=== PATIENT | female | born 1960 | race African-American/Black ===

== ENCOUNTER 2019-01-27 19:56 | Emergency (ER) | payer SELFPAY ==
[2019-01-27] MEDS ORDERED: ONDANSETRON 4 MG/2 ML VIAL IVPUSH ONE (20:11)
[2019-01-27] MEDS ORDERED: FAMOTIDINE 20 MG/50 ML IVPB 20 MG/50 ML MG IVPB ONE (20:11)
[2019-01-27] MEDS ORDERED: SODIUM CHLORIDE 1,000 ML IV STA (20:11)
--- NOTE | 2019-01-27 20:11 | PDOC ---
History of Present Illness - General Stated Complaint: NAUSEA/VOMITING Time Seen by Provider: 01/27/19 19:58 History Source: Patient Exam Limitations: No Limitations - History of Present Illness Initial Comments: 01/27/19 20:12 58 year old female with PMH HTN BIBA to ED for lightheadedness associated with nausea/vomiting since eating dinner today. Pt reported she was eating noodles, got up to help her grandson use the restroom, bent down to the ground and felt lightheaded then vomited 3 times. Pt denied blood in vomit, diarrhea, fever, chest pain, shortness of breath, cough. Pt reported she felt lightheaded for about an hour, which resolved just [employer]. Pt stated she had umbilical abdominal pain after vomiting, which has since resolved. Pt reported medication compliance. Allergies: NKDA Surgical history: denied ETOH use: denied Nicotine use: denied Past History - Past Medical History Allergies/Adverse Reactions: Allergies Allergy/AdvReac Type Severity Reaction Status Date / Time No Known Allergies Allergy Verified 01/27/19 20:21 Home Medications: Ambulatory Orders Lisinopril/Hydrochlorothiazide [Lisinopril-Hctz 20-12.5 mg Tab] 1 each PO DAILY 01/27/19 Review of Systems - Review of Systems Able to Perform ROS?: Yes Comments:: 01/27/19 20:12 General: denied fever, chills, generalized weakness. HEENT: denied sore throat, rhinorrhea, ear pain. Heart: admitted to lightheadedness. denied chest pain, palpitations, syncope, diaphoresis. Respiratory: denied shortness of breath, cough, sputum production, hemoptysis. Abdomen: admitted to abdominal pain, nausea, vomiting. denied diarrhea, constipation, blood in stool. : denied dysuria, increased urinary frequency, hematuria, urinary incontinence , flank pain. Back: denied back pain. Musculoskeletal: denied joint pain, muscle pain, joint swelling. Neurological: denied headache, dizziness, numbness, tingling, weakness. Skin: denied rash, laceration, abrasion. *Physical Exam - Physical Exam Comments: 01/27/19 20:15 Constitutional: Well-nourished, Well-developed, appearing stated age. obese. HEENT: head is normocephalic, atraumatic. EOMI. PERRLA. Neck: supple. Full ROM. Heart: regular rhythm. no murmurs, rubs or gallops. Lungs: clear to auscultation bilaterally. no crackles, rhonchi or wheezing. no stridor. Abdomen: soft, nontender, protuberant. normal bowel sounds. no rebound, guarding , masses. Extremities: peripheral pulses intact. no lower extremity edema. Neurological: CN 2-12 grossly intact. moves all four extremities. Psych: awake, alert, oriented x3. follows commands. answers questions appropriately. ED Treatment Course - LABORATORY CBC & Chemistry Diagram: 01/27/19 20:30 01/27/19 20:30 Medical Decision Making - Medical Decision Making 01/27/19 20:15 58 year old female with above PMH presented to ED for lightheadedness associated with nausea/vomiting. Initial Vital Signs Temp Pulse Resp BP Pulse Ox 97.8 F 77 18 137/66 98 01/27/19 20:14 01/27/19 20:14 01/27/19 20:14 01/27/19 20:14 01/27/19 20:14 Afebrile. No tachycardia. No tachypnea. Mild hypertension. No hypoxia on room air. Labs ordered: CBC, CMP, mag, troponin Medications ordered: normal saline 1000 cc bolus once, pepcid, maalox, zofran 4 mg IV once Imaging ordered: none EKG performed at 2012: rate 77, regular rhythm, normal axis, normal intervals, no acute ST changes. 01/27/19 21:00 pts orthostatics were negative, but pt was symptomatic upon standing 126/69, 83 laying 135/88, 78 sitting 130/78, 69 standing CBC WBC 6.4 K/mm3 (4.0-10.0) 01/27/19 20:30 RBC 4.87 M/mm3 (3.60-5.2) 01/27/19 20:30 Hgb 12.9 GM/dL (10.7-15.3) 01/27/19 20:30 Hct 39.2 % (32.4-45.2) 01/27/19 20:30 MCV 80.5 fl (80-96) 01/27/19 20:30 MCH 26.4 pg (25.7-33.7) 01/27/19 20:30 MCHC 32.8 g/dl (32.0-36.0) 01/27/19 20:30 RDW 15.1 % (11.6-15.6) 01/27/19 20:30 Plt Count 301 K/MM3 (134-434) 01/27/19 20:30 MPV 7.6 fl (7.5-11.1) 01/27/19 20:30 Absolute Neuts (auto) 4.0 K/mm3 (1.5-8.0) 01/27/19 20:30 Neutrophils % 63.1 % (42.8-82.8) 01/27/19 20:30 Lymphocytes % 29.1 % (8-40) 01/27/19 20:30 Monocytes % 6.6 % (3.8-10.2) 01/27/19 20:30 Eosinophils % 0.8 % (0-4.5) 01/27/19 20:30 Basophils % 0.4 % (0-2.0) 01/27/19 20:30 Nucleated RBC % 0 % (0-0) 01/27/19 20:30 01/27/19 21:18 CMP Sodium 142 mmol/L (136-145) 01/27/19 20:30 Potassium 3.9 mmol/L (3.5-5.1) 01/27/19 20:30 Chloride 108 mmol/L (98-107) H 01/27/19 20:30 Carbon Dioxide 30 mmol/L (21-32) 01/27/19 20:30 Anion Gap 4 MMOL/L (8-16) L 01/27/19 20:30 BUN 16.5 mg/dL (7-18) 01/27/19 20:30 Creatinine 0.8 mg/dL (0.55-1.3) 01/27/19 20:30 Est GFR (CKD-EPI)AfAm 94.85 01/27/19 20:30 Est GFR (CKD-EPI)NonAf 81.84 01/27/19 20:30 Random Glucose 102 mg/dL (74-106) 01/27/19 20:30 Calcium 9.1 mg/dL (8.5-10.1) 01/27/19 20:30 Magnesium 2.4 mg/dL (1.8-2.4) 01/27/19 20:30 Total Bilirubin 0.3 mg/dL (0.2-1) 01/27/19 20:30 AST 13 U/L (15-37) L 01/27/19 20:30 ALT 19 U/L (13-61) 01/27/19 20:30 Alkaline Phosphatase 116 U/L (45-117) 01/27/19 20:30 Troponin I < 0.02 ng/ml (0.00-0.05) 01/27/19 20:30 Total Protein 7.8 g/dl (6.4-8.2) 01/27/19 20:30 Albumin 3.7 g/dl (3.4-5.0) 01/27/19 20:30 Lipase 116 U/L (73-393) 01/27/19 20:30 No electrolyte abnormalities. No MYNOR. No transaminitis. Troponin undetectable. Lipase wnl. 01/27/19 22:23 Pt informed of results. Pt reported no recurrence of lightheadedness/nausea/vomiting. Pt discharged. Discharge medications: none *DC/Admit/Observation/Transfer Diagnosis at time of Disposition: Lightheadedness - Discharge Dispostion Disposition: HOME Condition at time of disposition: Improved Decision to Admit order: No - Referrals Referrals: Britni Munoz MD [Primary Care Provider] - - Patient Instructions Printed Discharge Instructions: DI for Dehydration -- Adult Additional Instructions: You were seen today for lightheadedness. Your lab work was normal. Your EKG was normal. Follow up with your primary care doctor within 3 days. Your care is not complete until you follow up. Drink lots of water throughout the day to stay hydrated. Eat a bland diet for the next 24 hours - bread, rice, toast, applesauce - to give your stomach a rest. Return to the Emergency Department for lightheadedness like you may pass out, chest pain, shortness of breath, severe back pain, weakness, numbness or any other new, worsening or concerning symptoms. - Post Discharge Activity Forms/Work/School Notes: Back to Work
[2019-01-27 20:18] VITALS: BP 137/66; PULSE 77; TEMP 97.8; BMI 83.2
--- NOTE | 2019-01-27 20:32 | PDOC ---
Documentation entered by Akin Woody SCRIBE, acting as scribe for Radha Mendez DO. Radha Mendez DO: This documentation has been prepared by the Bong alvarez Daniel, SCRIBE, under my direction and personally reviewed by me in its entirety. I confirm that the documentation accurately reflects all work, treatment, procedures, and medical decision making performed by me. Attending Attestation - Resident Resident Name: Galina Wakefield - ED Attending Attestation I have performed the following: I have examined & evaluated the patient, The case was reviewed & discussed with the resident, I agree w/resident's findings & plan, Exceptions are as noted - HPI HPI: 01/27/19 20:38 The patient is a 58 year old female with a past medical history of HTN here today for evaluation of lightheadedness. The patient reports that she was eating dinner when she bent down to help her grandson when she began to feel lightheaded. She notes that the lightheadedness lasted for about 1 hour and notes 3 episodes of vomiting and abdominal pain due to the vomiting. Patient denies headache. Denies fever, chills. Denies chest pain, shortness of breath. Denies nausea, diarrhea. Allergies: NKA - Physicial Exam PE: 01/27/19 20:38 Constitutional: Awake, alert, oriented. No acute distress. Head: Normocephalic. Atraumatic Eyes: PERRL. EOMI. Conjunctivae are not pale. ENT: Mucous membranes are moist and intact. Posterior pharynx without exudates or erythema. Uvula midline. Neck: Supple. Full ROM. No lymphadenopathy. Cardiovascular: Regular rate. Regular rhythm. S1, S2 regular. Distal pulses are 2+ and symmetric. Pulmonary/Chest: No evidence of respiratory distress. Clear to auscultation bilaterally No wheezing, rales or rhonchi. Abdominal: Soft and non-distended. There is no tenderness. No rebound, guarding or rigidity. No organomegaly. No palpable masses. Good bowel sounds. Back: No CVA tenderness. Musculoskeletal: No edema. No cyanosis. No clubbing. Full range of motion in all extremities. Nocalf tenderness. Radial/pedal pulses are intact and 2+ bilaterally Skin: Skin is warm and dry. No petechiae. No purpura. Neurological: Alert and oriented to person, place, and time. Cranial nerves II -XII are grossly intact. Normal speech. Strength is grossly symmetric. No sensory deficits. Psychiatric: Good eye contact. Normal interaction, affect and behavior. - Medical Decision Making 01/27/19 20:29 I, Dr. Radha Mendez, DO, attest that this document has been prepared under my direction and personally reviewed by me in its entirety. I further attest, that it accurately reflects all work, treatment, procedures and medical decision -making performed by me. 01/27/19 20:29 a/p: 58yo female who has recently been dieting with an episode of lightheadedness and then nbnb n/v after bending down and then standing up quickly -pt takes lisinopril/hctz -states she drank a small coffee and a bottle of water today -pt denies cp/sob -states after n/v she had an episodes of diarrhea -pt states she also walked outside today in the heat to and from work - 3blocks each way -pt has been dieting since january 01-no carbs, lois also ate pasta. -will obtain orthostatics, labs, ekg, will give 1l nss -pt is nontoxic in appearance, currently denies all complaints. 01/27/19 20:58 pts orthostatics were negative, but pt was symptomatic upon standing 126/69, 83 laying 135/88, 78 sitting 130/78, 69 standing 01/27/19 21:19 labs reviewed pt states feeling better po challenge given 01/27/19 21:20 ivf hydration running once finished pt will be stable for dc to home Heart Score/ECG Review - ECG Intrepretation Comment:: 01/27/19 20:31 sinus at 77, nl axis, nl interval, lvh, no acute st/t wave findings
[2019-01-27 20:56] LABS: BASO % 0.4 % (0-2.0); EOS % 0.8 % (0-4.5); HEMATOCRIT 39.2 % (32.4-45.2); HEMOGLOBIN 12.9 GM/dL (10.7-15.3); LYMPH % 29.1 % (8-40); MCH 26.4 pg (25.7-33.7); MCHC 32.8 g/dl (32.0-36.0); MEAN CELL VOLUME 80.5 fl (80-96); MEAN PLT VOLUME 7.6 fl (7.5-11.1); MONO % 6.6 % (3.8-10.2); NEUT % 63.1 % (42.8-82.8); PLATELET COUNT 301 K/MM3 (134-434); RBC 4.87 M/mm3 (3.60-5.2); RDW 15.1 % (11.6-15.6); WHITE BLOOD COUNT 6.4 K/mm3 (4.0-10.0)
[2019-01-27 21:15] LABS: ALBUMIN 3.7 g/dl (3.4-5.0); ALK PHOS 116 U/L (45-117); ANION GAP 4 MMOL/L (8-16); BILIRUBIN,TOTAL 0.3 mg/dL (0.2-1); BLOOD UREA NITROGEN 16.5 mg/dL (7-18); CALCIUM 9.1 mg/dL (8.5-10.1); CHLORIDE 108 mmol/L (98-107); CO2 30 mmol/L (21-32); CREATININE 0.8 mg/dL (0.55-1.3); GLUCOSE,RANDOM 102 mg/dL (74-106); LIPASE 116 U/L (73-393); MAGNESIUM 2.4 mg/dL (1.8-2.4); POTASSIUM 3.9 mmol/L (3.5-5.1); SGOT/AST 13 U/L (15-37); SGPT/ALT 19 U/L (13-61); SODIUM 142 mmol/L (136-145); TOT PROT 7.8 g/dl (6.4-8.2)
--- NOTE | 2019-01-28 11:52 | EKG ---
Test Reason : Blood Pressure : / mmHG Vent. Rate : 077 BPM Atrial Rate : 077 BPM P-R Int : 124 ms QRS Dur : 076 ms QT Int : 376 ms P-R-T Axes : 018 011 006 degrees QTc Int : 425 ms POOR DATA QUALITY, INTERPRETATION MAY BE ADVERSELY AFFECTED NORMAL SINUS RHYTHM MINIMAL VOLTAGE CRITERIA FOR LVH, MAY BE NORMAL VARIANT NO PREVIOUS ECGS AVAILABLE Confirmed by AMELIA GARDNER MD ([id number]) on 01/28/2019 11:52:01 AM Referred By: Confirmed By:AMELIA GARDNER MD
== END 2019-01-27 22:27 | disposition home or self-care (01) ==
LOC: JER 19:56
PROC: 3E0337Z Introduction of Electrolytic and Water Balance Substance into Peripheral Vein, Percutaneous Approach (ICD-10-PCS; principal; 2019-01-27)
PROC: 3E033GC Introduction of Other Therapeutic Substance into Peripheral Vein, Percutaneous Approach (ICD-10-PCS; 2019-01-27)
PROC: 3E033GC Introduction of Other Therapeutic Substance into Peripheral Vein, Percutaneous Approach (ICD-10-PCS; 2019-01-27)
DX: R42 Dizziness and giddiness (principal); I10 Essential (primary) hypertension
CPT/HCPCS: 36415; 80053; 83690; 83735; 84484; 85025; 93005; 93010; 99284-25; J7030